=== PATIENT | female | born 1980 | race Hispanic/Latino ===

== ENCOUNTER → 2017-10-19 | Outpatient (CLI) | payer BC ==
--- NOTE | 2017-10-19 11:20 | US ---
PELVIC ULTRASOUND HISTORY:PELVIC AND PERINEAL PN COMPARISON:None TECHNIQUE: Grayscale and color Doppler sonographic evaluation of intrapelvic structures. Transvaginal imaging approach was utilized to better visualize intrapelvic content. FINDINGS: Uterus grossly unremarkable in appearance and measures 7.3 x 4.8 x 3.3 cm, with homogeneous myometrial echotexture. Focal hypoechoic area in posterior uterus measures are 1.2 x 1.7 x 1.9 cm, possibly a fibroid. Question additional fibroid versus imaging artifact along the anterior lower uterine wall measuring 1.3 x 1.6 x 0.5 cm. Endometrial canal measures 1.4 mm in maximal diameter. Right ovary measures 2.1 x 2.3 x 3.4 cm, with internal simple cyst measuring 2.4 x 1.7 x 1.7 cm. left ovary measures 1.6 x 1.9 x 2.6 cm. Unremarkable vasculature and follicles detected in both ovaries. No concerning mass detected in remainder of pelvis. No free fluid in pelvic floor. IMPRESSION: At least one uterine fibroid. Electronically signed by: Terrance Patino MD 10/19/2017 11:19 AM FORMAL SERVICE WAITER
== END ==
LOC: US 09:10
PROVIDERS: ATTEND Family Medicine
DX: Z12.31 Encounter for screening mammogram for malignant neoplasm of breast (principal); R10.84 Generalized abdominal pain; R10.2 Pelvic and perineal pain; D25.9 Leiomyoma of uterus, unspecified

== ENCOUNTER → 2018-08-21 | Outpatient (CLI) | payer BC ==
--- NOTE | 2018-08-21 16:22 | US ---
EXAM DESCRIPTION: Venous,Lower Extremity LT CLINICAL HISTORY: 38 years, Female, edema COMPARISON: None TECHNIQUE: Duplex venous ultrasound of the left lower extremity was performed. FINDINGS: The left lower extremity veins are fully compressible and demonstrate physiologic responses to augmentation maneuvers. Color Doppler images show no intraluminal filling defect. IMPRESSION: Negative exam. No DVT in the left lower extremity. Electronically signed by: Jr Mills MD 08/21/2018 4:20 PM GLUE MACHINE OPERATOR
== END ==
LOC: LAB.O 15:20
PROVIDERS: ATTEND Family Medicine
DX: R60.0 Localized edema (principal)

== ENCOUNTER → 2018-12-06 | Outpatient (CLI) | payer BC | LOC: LAB.O 11:21 | PROVIDERS: ATTEND Nurse Practitioner Family | DX: R07.9 Chest pain, unspecified (principal); Z80.41 Family history of malignant neoplasm of ovary ==

== ENCOUNTER → 2019-10-08 | Outpatient (CLI) | payer BC | LOC: GMAJ 17:31 | PROVIDERS: ATTEND Family Medicine | DX: M25.50 Pain in unspecified joint (principal) ==

== ENCOUNTER → 2020-07-08 | Outpatient (CLI) | payer BC | LOC: GMALS 10:37 | PROVIDERS: ATTEND Nurse Practitioner Acute Care | DX: R30.0 Dysuria (principal) ==